=== PATIENT | female | born 1960 | race Caucasian/White ===

== ENCOUNTER → 2020-09-11 | Outpatient (CLI) | payer BC ==
[~2020-09-11] MED LIST: PERCOCET 5/325 T1 EA PO; PREDNISONE 20 M20 MG PO; ZOFRAN ODT 4 MG4 MG SL
== END ==
LOC: EXRD 11:47
DX: M79.605 Pain in left leg (principal); M79.89 Other specified soft tissue disorders
CPT/HCPCS: 73590

== ENCOUNTER → 2020-11-01 | Outpatient (CLI) | payer BC ==
[2020-11-01 08:47] LABS: HEMOGLOBIN 14.2 gm/dl (12.3-15.3); RED BLOOD COUNT 4.99 M/UL (4.00-5.10); WHITE BLOOD COUNT 6.4 K/UL (4.5-11.0)
[2020-11-01 09:18] LABS: BUN/CREATININE RATIO 19 (0-10)
== END ==
LOC: LAB 08:23
PROVIDERS: Orthopaedic Surgery
DX: Z01.812 Encounter for preprocedural laboratory examination (principal)
CPT/HCPCS: 36415; 80053; 83036; 85027

== ENCOUNTER → 2021-03-28 | Outpatient (CLI) | payer BC | LOC: EXRD 08:27 | DX: M79.641 Pain in right hand (principal); M79.642 Pain in left hand; M25.50 Pain in unspecified joint | CPT/HCPCS: 73130 ==

== ENCOUNTER → 2021-08-21 | Outpatient (CLI) | payer BC | LOC: EXRD 13:57 | DX: M54.9 Dorsalgia, unspecified (principal); M47.812 Spondylosis without myelopathy or radiculopathy, cervical region; M47.816 Spondylosis without myelopathy or radiculopathy, lumbar region; M47.814 Spondylosis without myelopathy or radiculopathy, thoracic region | CPT/HCPCS: 72040; 72070; 72100 ==

== ENCOUNTER 2022-01-13 20:14 | Emergency (ER) | payer BC ==
[2022-01-13 21:02] LABS: HEMOGLOBIN 12.5 gm/dl (12.3-15.3); RED BLOOD COUNT 4.41 M/UL (4.00-5.10); WHITE BLOOD COUNT 10.7 K/UL (4.5-11.0)
[2022-01-13 21:15] LABS: BUN/CREATININE RATIO 16 (0-10)
[2022-01-13] MEDS ORDERED: PERCOCET 5/325 T1 EA PO (22:24)
[2022-01-13] MEDS ORDERED: VALIUM5 MG PO (22:24)
== END 2022-01-13 22:50 | disposition home or self-care (01) ==
LOC: ER1 20:14
PROVIDERS: Family Medicine
DX: S76.311A Strain of muscle, fascia and tendon of the posterior muscle group at thigh level, right thigh, initial encounter (principal); E11.9 Type 2 diabetes mellitus without complications; X50.9XXA Other and unspecified overexertion or strenuous movements or postures, initial encounter; Y99.0 Civilian activity done for income or pay; Y92.89 Other specified places as the place of occurrence of the external cause
CPT/HCPCS: 29530; 73502; 73552; 80053; 82550; 82553; 84484; 85025; 96374; 96375; 96376; 99284; J2270; J2405; J3360

== ENCOUNTER → 2022-03-12 | Outpatient (CLI) | payer BC ==
[~2022-03-12] MED LIST changes: +VALIUM5 MG PO
== END ==
LOC: EXRD 07:59
DX: R74.8 Abnormal levels of other serum enzymes (principal); K76.0 Fatty (change of) liver, not elsewhere classified
CPT/HCPCS: 76705

== ENCOUNTER → 2022-03-13 | Outpatient (CLI) | payer BC | LOC: EXRD 10:20 | DX: S62.102A Fracture of unspecified carpal bone, left wrist, initial encounter for closed fracture (principal); S92.912A Unspecified fracture of left toe(s), initial encounter for closed fracture; M19.032 Primary osteoarthritis, left wrist | CPT/HCPCS: 73110; 73620 ==

== ENCOUNTER → 2022-05-06 | Outpatient (CLI) | payer BC | LOC: EXRD 05-04 11:30 | DX: M81.0 Age-related osteoporosis without current pathological fracture (principal); M85.88 Other specified disorders of bone density and structure, other site | CPT/HCPCS: 77080 ==

== ENCOUNTER → 2022-05-12 | Outpatient (CLI) | payer BC | LOC: EXRD 13:31 | DX: S89.91XA Unspecified injury of right lower leg, initial encounter (principal) | CPT/HCPCS: 73562 ==

== ENCOUNTER → 2022-05-21 | Outpatient (CLI) | payer BC | LOC: EMI 07:56 | DX: S89.91XA Unspecified injury of right lower leg, initial encounter (principal); M25.461 Effusion, right knee | CPT/HCPCS: 73721 ==